=== PATIENT | female | born 1940 | race Caucasian/White ===

== ENCOUNTER → 2018-06-15 | Outpatient (CLI) | payer BC, MEDICARE ==
[2018-06-15 10:03] VITALS: BP 124/85; PULSE 78; RESP 18; BMI 25.0
--- NOTE | 2018-06-15 11:04 | P.GSHP ---
History of Present Illness H&P Date: 06/15/18 Chief Complaint: right breast cancer Leah is a 77-year-old white female who presented with a nodule in her right breast. She states that been present for approximately a year and a half that she had been busy with her who had health issues. She therefore declined to have follow-up at that time but was recently seen in the mammogram was performed. On the mammogram a 4.3 x 4.2 cm lesion was seen in the right breast in the posterior one third. A core biopsy was obtained of this which revealed a grade 3 invasive ductal carcinoma. This is ER/[place] positive HER-2/jos pending grade 3 lesion. The patient has no pain in her breast. She has had no nipple discharge or skin changes. The patient placed preventative medicine. She had not had a mammogram for many years. 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 He is blind and is hearing disabled. He also is a cardiac patient and a diabetic. Family History: negative for cancer Hormonal history: Menarche: [birth year]04[birth year] Pregnancies: 4, 4 children and, for splenic 21, did not breast-feed Menopause: 52 control pills: Negative for moans: Negative Past surgical history: Negative Past medical history: Negative Social history: Smoke: Negative Alcohol: Negative Drugs: Negative - Constitutional Constitutional: Reports sweats - EENT Eyes: denies blurred vision, denies pain Ears: deny: decreased hearing, tinnitus Ears, nose, mouth and throat: Denies headache, Denies sore throat - Breasts Breasts: bilateral: as per HPI - Cardiovascular Cardiovascular: Reports high blood pressure, Denies chest pain, Denies shortness of breath - Respiratory Respiratory: Denies cough, Denies 7 - Gastrointestinal Gastrointestinal: Denies abdominal pain, Denies diarrhea, Denies nausea, Denies vomiting - Genitourinary (Female) Genitourinary: Denies dysuria, Denies hematuria - Menstruation Menstruation: Reports postmenopausal - Musculoskeletal Musculoskeletal: Denies myalgias - Integumentary Integumentary: Denies pruritus, Denies rash - Neurological Neurological: Denies numbness, Denies weakness - Psychiatric Psychiatric: Denies anxiety, Denies depression - Endocrine Endocrine: Denies fatigue, Denies weight change - Hematologic/Lymphatic Comment: none - Allergic/Immunologic Comment: none Past Medical History Past Medical History: Hypertension History of Any Multi-Drug Resistant Organisms: None Reported Additional Past Surgical History / Comment(s): IMPLANT EYES Smoking Status: Never smoker Medications and Allergies Home Medications Medication Instructions Recorded Confirmed Type Lisinopril [Prinivil] 20 mg PO 06/15/18 History Allergies Allergy/AdvReac Type Severity Reaction Status Date / Time No Known Allergies Allergy Unverified 06/15/18 10:03 Surgical - Exam Vital Signs Pulse Resp BP Pulse Ox 78 18 124/85 99 06/15/18 09:54 06/15/18 09:54 06/15/18 09:54 06/15/18 09:54 BMI 25 - General well developed, well nourished, no distress - Eyes normal ocular movement - ENT no hearing loss, no congestion - Neck no masses, trachea midline - Respiratory normal respiratory effort, clear to auscultation - Cardiovascular Rhythm: regular Heart Sounds: normal: S1, S2 - Abdomen Abdomen: soft, non tender, no guarding, no rigid, no rebound - Integumentary normal turgor - Neurologic no disoriented, no combative - Musculoskeletal normal gait, normal posture - Psychiatric oriented to time, oriented to person, oriented to place, speech is normal, memory intact Breast examination: Right breast: Upper outer quadrant reveals approximately 4-1/2 cm mass which is not fixed to the chest wall , this appears to be consistent with the area which was biopsied no other masses of concern identified Right axilla: No adenopathy of concern Left breast: Multi-positional exam no dominant masses or nodules of concern Left axilla: No adenopathy of concern Results Mammogram and pathology results reviewed Assessment and Plan Assessment: Impression: 1. Patient newly diagnosed with a approximately 4.5 cm right breast cancer ER/ [place] positive grade 3 HER-2 equivocal 2. Family history negative for cancer Plan: 1. Preoperative evaluation by medical oncology secondary to size of the tumor 2. Preoperative evaluation at tumor board We've had a long discussion with the patient and her [id number] and her granddaughter regarding treatment options. I have recommended seen a medical oncologist for possible preoperative chemotherapy. The patient would like to save her breast if possible and it would be much better if we could shrink the size of the tumor. The patient is being scheduled to see medical oncology at this time and minimal follow-up here. Cc:
== END | disposition home or self-care (01) ==
LOC: WWCWWP 09:42
PROVIDERS: ATTEND Surgery
DX: Z53.9 Procedure and treatment not carried out, unspecified reason (principal)

== ENCOUNTER → 2018-07-12 | Outpatient (CLI) | payer MEDICARE ==
[2018-07-12 16:27] VITALS: BP 130/68; PULSE 78; RESP 18; BMI 30.2
--- NOTE | 2018-07-12 16:37 | P.PN ---
Progress Note - Text Progress Note Date: 07/12/18 Leah is a 77-year-old white female diagnosed with a right breast invasive ductal carcinoma. The lesion is approximately 4 cm in size when she was initially seen. The patient has been seen by medical oncology and has been started on Femar as the lesion is ER/NH positive. The lesion was a 4.3 cm grade 3 ER/NH positive HER-2/jos negative and node negative right breast cancer. The patient wishes to be treated with a lumpectomy if possible. We have therefore attempting to do preoperative shrinking of the tumor. An Oncotype DX study has been ordered and we are waiting for the results of this. I spoken with medical oncology today depending on results of this will depend on further treatment. At this time they believe that Dr. Fiore wishes to treat with hormone blocking agent for approximately 4 months prior to surgical intervention. Physical exam: Lungs: Clear Heart: Regular rate and rhythm Breast: The area of concern in the upper outer quadrant is approximately 3-4 cm in size and appears it may be slightly smaller than previously, the area is not fixed to the underlying chest wall Impression: 1. Right breast invasive ductal carcinoma, patient is presently on an aromatase inhibitor Plan: 1. Await Oncotype DX results depending on these results patient may have neoadjuvant chemotherapy 2. Continue the Aromidex/await recommendations from medical oncology 3. We will see patient again in one month's time CC: DR. Zulma Mercado
== END | disposition home or self-care (01) ==
LOC: WWCWWP 16:14
PROVIDERS: ATTEND Surgery
DX: Z53.9 Procedure and treatment not carried out, unspecified reason (principal)

== ENCOUNTER → 2018-08-16 | Outpatient (CLI) | payer MEDICARE ==
[2018-08-16 16:02] VITALS: BP 112/72; PULSE 76; RESP 18; TEMP 97.5; BMI 29.2
--- NOTE | 2018-08-16 16:28 | P.PN ---
Subjective Progress Note Date: 08/16/18 Principal diagnosis: Right breast invasive ductal carcinoma Leah is a 78-year-old white female diagnosed with a right breast invasive ductal carcinoma. The lesion was initially approximated 4.3 cm in size. She has been seen by medical oncology and started on Femara the lesion is ER/AZ positive. The nodes were felt to be clinically negative after diagnosis. The lesion is ER/AZ positive, HER-2/jos negative, and grade 3. She has been on hormonal therapy for approximately 2 months and is tolerating it without any difficulty. She states that she believes that the lesion may have decreased slightly in size. As per patient's family and Oncotype was performed and the patient was told she did not need chemotherapy that it would not be beneficial. ROS: HEENT: sinus drainage Lungs: Negative Heart: 9 GI: Negative : Negative Musculoskeletal: Negative Hematologic: Negative Objective - Vital Signs Vital signs: Vital Signs Temp 97.5 F L 08/16/18 15:58 Pulse 76 08/16/18 15:58 Resp 18 08/16/18 15:58 BP 112/72 08/16/18 15:58 Pulse Ox 97 08/16/18 15:58 Intake & Output 08/15/18 08/16/18 08/16/18 18:59 06:59 18:59 Weight 68.039 kg - Exam BMI 29.3 - Constitutional General appearance: Present: average body habitus - EENT Eyes: Present: EOMI ENT: Present: hearing grossly normal - Neck Neck: Present: normal ROM - Respiratory Respiratory: bilateral: CTA - Cardiovascular Rhythm: regular Heart sounds: normal: S1, S2 - Gastrointestinal General gastrointestinal: Present: soft - Integumentary Integumentary: Present: normal turgor - Musculoskeletal Musculoskeletal: Present: gait normal - Psychiatric Psychiatric: Present: A&O x's 3, appropriate affect, intact judgment & insight - Additional findings Additional findings: Breast examination: Right breast: Multi-positional examination reveals the lesion of concern in the upper outer quadrant of the right breast this appears to be softer and have decreased in size relative to the initial examination at this time it is approximately 3-1/2 cm in size Right axilla: No adenopathy of concern Left breast: Multiple positional exam no dominant masses or nodules of concern Left axilla: No adenopathy of concern Assessment and Plan Assessment: Impression: 1. Right breast invasive ductal carcinoma 2. Patient on hormone therapy as per Dr. Duenas 3. Hypertension Plan: 1. Continue hormonal therapy 2. Patient to call if she has any questions or concerns 3. Will follow-up in 2 months and schedule surgery at that time [facility]
== END | disposition home or self-care (01) ==
LOC: WWCWWP 15:43
PROVIDERS: ATTEND Surgery
DX: Z53.9 Procedure and treatment not carried out, unspecified reason (principal)

== ENCOUNTER → 2019-01-31 | Outpatient (CLI) | payer MEDICARE ==
[2019-01-31 16:38] VITALS: BP 120/75; PULSE 59; RESP 16; TEMP 97.5; BMI 29.5
--- NOTE | 2019-01-31 17:20 | P.GSHP ---
History of Present Illness H&P Date: 01/31/19 Chief Complaint: Stage IIA right breast cancer There is a 78-year-old white female who was initially seen in May 2018 with a palpable right breast mass. She had noticed several years prior. Did not change in size and she therefore proceeded to have this evaluated. She then had a diagnostic mammogram and ultrasound of the right breast which revealed a 4.3 x 4.2 cm mass in the upper outer quadrant of the right breast. Core biopsy was performed which was positive for grade 3 invasive ductal carcinoma this was ER/DC strongly positive for HER-2 negative by fish. Oncotype DX revealed recurrence score of 5. She therefore started neoadjuvant for more up with an a ttempt to shrink the lesion. Bone density and 4419 was normal. The patient states that she has had good results with the Femara and is now ready for surgical intervention. She would prefer to have a lumpectomy if at all possible. She had no lymph nodes involved initially. This was an original T2 N0 M0 G3 ER/DC positive HER-2/jos negative stage IIA cancer. Family History: negative for cancer Hormonal history: Menarche: [age] Pregnancies: 4, 4 children and, first born at 21, did not breast-feed Menopause: 52 control pills: Negative hormones: Negative Past surgical history: Negative Past medical history: Negative Social history: Smoke: Negative Alcohol: Negative Drugs: Negative - Constitutional Constitutional: Reports sweats - EENT Eyes: denies blurred vision, denies pain Ears: deny: decreased hearing, tinnitus Ears, nose, mouth and throat: Denies headache, Denies sore throat - Breasts Breasts: bilateral: as per HPI - Cardiovascular Cardiovascular: Reports high blood pressure, Denies chest pain, Denies shortness of breath - Respiratory Respiratory: Denies cough, Denies 7 - Gastrointestinal Gastrointestinal: Denies abdominal pain, Denies diarrhea, Denies nausea, Denies vomiting - Genitourinary (Female) Genitourinary: Denies dysuria, Denies hematuria - Menstruation Menstruation: Reports postmenopausal - Musculoskeletal Musculoskeletal: Denies myalgias - Integumentary Integumentary: Denies pruritus, Denies rash - Neurological Neurological: Denies numbness, Denies weakness - Psychiatric Psychiatric: Denies anxiety, Denies depression - Endocrine Endocrine: Denies fatigue, Denies weight change - Hematologic/Lymphatic Comment: none - Allergic/Immunologic Comment: - Constitutional Constitutional: Denies chills, Denies fever - EENT Eyes: denies blurred vision, denies pain Ears: deny: decreased hearing, tinnitus Ears, nose, mouth and throat: Reports post-nasal drip, Denies headache, Denies sore throat - Breasts Breasts: bilateral: as per HPI - Cardiovascular Cardiovascular: Reports high blood pressure, Denies chest pain, Denies shortness of breath - Respiratory Respiratory: Denies cough, Denies 7 - Gastrointestinal Gastrointestinal: Denies abdominal pain, Denies diarrhea, Denies nausea, Denies vomiting - Genitourinary (Female) Genitourinary: Denies dysuria, Denies hematuria - Menstruation Menstruation: Reports postmenopausal - Musculoskeletal Musculoskeletal: Denies myalgias - Integumentary Integumentary: Denies pruritus, Denies rash - Neurological Neurological: Denies numbness, Denies weakness - Psychiatric Psychiatric: Denies anxiety, Denies depression - Endocrine Endocrine: Denies fatigue, Denies weight change - Hematologic/Lymphatic Comment: none - Allergic/Immunologic Allergic/Immunologic: Reports seasonal allergies Past Medical History Past Medical History: Hypertension History of Any Multi-Drug Resistant Organisms: None Reported Additional Past Surgical History / Comment(s): IMPLANT EYES Smoking Status: Never smoker Medications and Allergies Home Medications Medication Instructions Recorded Confirmed Type Lisinopril [Prinivil] 20 mg PO DAILY 06/15/18 01/31/19 History Cholecalciferol [Vitamin D3] 2,000 unit PO DAILY 07/12/18 01/31/19 History Letrozole [Femara] 2.5 mg PO DAILY 07/12/18 01/31/19 History Allergies Allergy/AdvReac Type Severity Reaction Status Date / Time No Known Allergies Allergy Unverified 01/31/19 16:16 Surgical - Exam Vital Signs Temp Pulse Resp BP Pulse Ox 97.5 F L 59 L 16 120/75 96 01/31/19 16:31 01/31/19 16:31 01/31/19 16:31 01/31/19 16:31 01/31/19 16:31 BMI 29.5 - General well developed, well nourished, no distress - Eyes normal ocular movement - ENT no hearing loss, no congestion - Neck no masses, trachea midline - Respiratory normal respiratory effort, clear to auscultation - Cardiovascular Rhythm: regular Heart Sounds: normal: S1, S2 - Abdomen Abdomen: soft, non tender, no guarding, no rigid, no rebound - Integumentary normal turgor - Neurologic no disoriented, no combative - Musculoskeletal normal gait, normal posture - Psychiatric oriented to time, oriented to person, oriented to place, speech is normal, memory intact breast exam: right breast: Right breast upper outer quadrant area increased fullness site of prior cancer there has been good result with the Femora no other dominant masses or nodules of concern Left right axilla: No adenopathy of concern Left breast: Multiple positional exam no dominant masses or nodules of concern Left axilla: No adenopathy of concern Results Patient states she had bilateral mammogram in November at [facility] do not have that report available Assessment and Plan Assessment: Impresson: 1. right breast cancer 2. fibrocystic breast changes 3. mass right breast 4. Patient with good response to Femara 5. HTN We have discussed risk and benefits of breast surgery. We have talked about lumpectomy and sentinel node biopsy plus or minus axillary node dissection. She understands she will need radiation therapy following lumpectomy. We've also talked about mastectomy plus or minus reconstruction. At this time the patient would like to have lumpectomy and sentinel node biopsy possible axillary node dissection. Section reaction to the anesthetic as well as decreased sensation to the inner arm, lymphedema, and possible injury to the thoracodorsal and long thoracic nerves. She understands and wishes to proceed. Plan: 1. Needle localization excisional lumpectomy right breast possible tissue transfer and rearrangement as well as sentinel node biopsy possible axillary node dissection 2. medical clearance Cc: Yadi Garcia
== END | disposition home or self-care (01) ==
LOC: WWCWWP 15:43
PROVIDERS: ATTEND Surgery
DX: Z53.9 Procedure and treatment not carried out, unspecified reason (principal)

== ENCOUNTER 2019-02-26 08:10 | Day surgery (SDC) | payer MEDICARE ==
[2019-02-22 09:54] VITALS: BMI 28.3
[~2019-02-26 08:10] MED LIST: DEXAMETHASONE SOD PHOSPHATE 10 MG/ML 1 ML VIAL IV ONE; HEPARIN SODIUM,PORCINE 5,000 UNIT/ML 1 ML VIAL SQ ONE; HYDROmorphone 0.5 MG/0.5 ML SYRINGE IVP PRN; LACTATED RINGERS 1,000 ML IV SCH; LIDOCAINE 1% 20 ML VIAL (10MG/ML) FOR IV START INTRADERMA PRN; MIDAZOLAM 2 MG/2 ML VIAL IV PRN; ONDANSETRON 4 MG/2 ML VIAL IVP ONE; SCOPOLAMINE 1.5MG/72HR PATCH TRANSDERM ONE
[2019-02-26 08:52] VITALS: RESP 16
[2019-02-26] MEDS ORDERED: ALPRAZolam 0.25 MG TAB PO ONE (08:53)
[2019-02-26] MEDS ORDERED: LIDOCAINE 1% INJ 10MG/ML (20 ML MDV) SQ ONE (09:31)
--- NOTE | 2019-02-26 10:10 | NM ---
EXAMINATION TYPE: NM sentinel node injection DATE OF EXAM: 02/26/2019 COMPARISON: NONE HISTORY: Right-sided breast cancer. TECHNIQUE AND FINDINGS: The procedure of sentinel lymph node injection was explained to the patient. The benefits, alternatives, and risks were discussed. An informed consent was then obtained. Overlying skin is cleaned with sterile alcohol. Following this, 530 uCi Tc99m Tilmanocept was inject ed in the upper outer aspect of the right nipple intradermally. The patient tolerated the procedure well without any immediate complication. The patient was kept in the radiology department for short stay after the procedure and then taken to surgery for surgical p rocedure what is presumed intraoperative gamma probe will be used for sentinel lymph node detection. IMPRESSION: Right breast radiotracer injection for sentinel node localization as above.
[2019-02-26] MEDS ORDERED: MIDAZOLAM 2 MG/2 ML VIAL IVP ONE (10:39)
[2019-02-26] MEDS ORDERED: HEPARIN SODIUM,PORCINE 5,000 UNIT/ML 1 ML VIAL SQ ONE (12:20)
--- NOTE | 2019-02-26 12:23 | P.NAPBC ---
NAPBC Queries - NAPBC Queries Was patient's case review presented at [facility] tumor board? If no, comment.: Yes Was patient's pathology reviewed at [facility]? If no, comment.: Yes Was breast conservation surgery offered? If no, comment.: Yes Was sentinel node biopsy offered? If no, comment.: Yes Was diagnosis confirmed by percutaneous core biopsy? If no, comment.: Yes Is patient mastectomy patient?: No Clinical Stage: Stage IIA [id number]
[2019-02-26] MEDS ORDERED: ePHEDrine SULFATE/0.9% NACL/PF 50 MG/5 ML SYRINGE IV ONE (12:56)
[2019-02-26] MEDS ORDERED: MIDAZOLAM 2 MG/2 ML VIAL ONE (12:56)
[2019-02-26] MEDS ORDERED: PROPOFOL 10 MG/ML 20 ML VIAL IV ONE (12:56)
[2019-02-26] MEDS ORDERED: ROCURONIUM BROMIDE 10 MG/ML 10 ML VIAL IV ONE (12:56)
[2019-02-26] MEDS ORDERED: SUCCINYLCHOLINE CHLORIDE 100 MG/5 ML SYR IV ONE (12:56)
[2019-02-26] MEDS ORDERED: LIDOCAINE 1% INJ 10MG/ML (20 ML MDV) ONE (12:56)
[2019-02-26] MEDS ORDERED: fentaNYL (PF) 50 MCG/ML 2 ML AMP ONE (12:56)
[2019-02-26] MEDS ORDERED: LACTATED RINGERS 1,000 ML IV ONE (13:38)
--- NOTE | 2019-02-26 14:37 | P.OP ---
Date of Procedure: 02/26/19 Preoperative Diagnosis: Right breast cancer Postoperative Diagnosis: Same Procedure(s) Performed: Right breast sentinel node biopsy, right breast lumpectomy Anesthesia: BARTA Surgeon: Gloria Nava Estimated Blood Loss (ml): 10 IV fluids (ml): 600 Pathology: other (Breast tissue, sentinel node) Condition: stable Disposition: same day Indications for Procedure: right breast core biopsy proven carcinoma status post neoadjuvant hormone therapy Operative Findings: Dense breast tissue, firm mass right breast upper outer quadrant, small sentinel node Description of Procedure: The patient is a 78-year-old white female with a biopsy-proven right breast cancer. She received neoadjuvant hormone therapy. The patient comes for lumpectomy and sentinel node biopsy. The area of the axilla was interrogated prior to prepping the area and this was noted to be radioactive, therefore methylene blue was not injected. The breast and axilla were prepped and draped in a sterile fashion. An incision was made in the axilla with the greatest radioactivity was identified. This was carried down through the skin and subcutaneous tissue to the axillary tissue. This was grasped using an Allis clamp and removed using the Harmonic scalpel. Tiff node was identified in the specimen. The 10 second count was 2331. The 10 second background axillary count was 18. No other adenopathy of concern was palpated. Intraoperative consultation with pathology as to whether frozen section should be obtained was performed. Pathology felt that it would be best to wait for permanent as the patient had received neoadjuvant therapy. We discussed that this was hormonal elevated and chemotherapy in a sterile felt that they would get a better result with permanent section. Following this the axilla was irrigated. After assured that hemostasis was attained the patient was closed using 3-0 Vicryl suture. This was followed by 4-0 Monocryl. The area of the breast was addressed. An incision was made over the area for the projection of the guidewire was noted. This was carried down through the subcutaneous tissue and the wire was brought into the area of the specimen. The specimen was felt to be was grasped using several Allis clamps and this was widely excised. Skin was excised. Dissection was performed posteriorly to the pectoralis major muscle. There was some concern that there was involvement in this area and this was excised at this point as well. The specimen was removed and painted for orientation. Radiograph revealed the area of concern about removed. Additional inferior and superior margins were obtained. These were painted for orientation as well. After assured that hemostasis was attained the wound was well irrigated. The deep tissues were closed using 3-0 Vicryl suture. The skin was closed using 4-0 Monocryl. The patient tolerated the procedure in stable condition. Titanium clips were placed. The deep tissues were closed using 3-0 Vicryl suture. The skin was closed using 4-0 Monocryl. Mastisol and Steri-Strips were applied. The patient tolerated procedure in stable condition.
--- NOTE | 2019-02-26 14:39 | P.DS ---
Providers Attending physician: Gloria Nava Primary care physician: Srini Maya Plan - Discharge Summary Discharge Rx Participant: Yes New Discharge Prescriptions: No Action Lisinopril [Prinivil] 20 mg PO QAM Letrozole [Femara] 2.5 mg PO QAM Cholecalciferol [Vitamin D3] 2,000 unit PO DAILY Loratadine [Claritin] 10 mg PO DAILY PRN PRN Reason: sinus congestion Discharge Medication List Lisinopril [Prinivil] 20 mg PO QAM 06/15/18 [History] Cholecalciferol [Vitamin D3] 2,000 unit PO DAILY 07/12/18 [History] Letrozole [Femara] 2.5 mg PO QAM 07/12/18 [History] Loratadine [Claritin] 10 mg PO DAILY PRN 02/22/19 [History] Follow up Appointment(s)/Referral(s): Gloria Nava MD [STAFF PHYSICIAN] - 1 Week Activity/Diet/Wound Care/Special Instructions: do not drive for 24 hours after discharge wear bra at all times Discharge Disposition: HOME SELF-CARE
--- NOTE | 2019-02-26 14:41 | MM ---
EXAMINATION TYPE: MG pre op needle loc RT, MG surgical specimen RT DATE OF EXAM: 02/26/2019 COMPARISON: Outside mammogram November 07, 2018 and older studies. CLINICAL HISTORY: Biopsy-proven right breast cancer. TECHNIQUE: Needle localization with wire placement and surgical excision of area of concern in the right breast. FINDINGS: The procedure of needle localization with wire placement and than surgical excision was explained to the patient. Benefits, alternatives, and risks were discussed. An informed consent was then obtained. The shortest pathway for procedure was chosen. Shortest pathway was lateral approach. The overlying skin was prepped and draped in usual sterile fashion. Lidocaine was used as anesthetic into the skin and subcutaneous tissue up to the level of area of concern. A 7 cm needle was used. It was placed via a lateral approach under mammographic guidance. Subsequent 90 degrees mammogram show the needle to be in satisfactory position relative to the targeted area. At this point, wire was placed and the needle was withdrawn. The wire was fixed to patient's skin. Images were marked for surgeon. The patient tolerated the procedure well without any immediate complication. The patient was kept in the radiology department for short stay after the procedure and then taken to surgery for surgical excision. Targeted biopsy clip and wire are identified in specimen mammogram. The patient was kept in hospital for short stay after the procedure and then discharged home in stable condition. IMPRESSION: Successful, uncomplicated needle localization with wire placement and surgical excision of targeted biopsy clip in the right breast, full pathology results to follow. Pathology Results: Malignant A. 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 Invasive tumor involves resection margins multifocally (tumor involves purple inked/posterior, black inked/superior, and blue inked/anterior margins). Prominent scar consistent with neoadjuvant treatment related changes. See Surgical Pathology Cancer Case Summary. B. RIGHT BREAST SENTINEL LYMPH NODE, BIOPSY: Lymph node negative for metastasis. CK7 and AMALIA immunoperoxidase stains are confirmatory (controls appropriate). C. RIGHT BREAST, NEW INFERIOR MARGIN, EXCISION: Benign breast tissue. D. RIGHT BREAST, NEW SUPERIOR MARGIN, EXCISION: Benign fibroadipose tissue. E. DE-EPITHELIALIZED SKIN: Benign skin and subcutaneous tissue. Recommendation Surgical consult of the right breast. (tumor involves margins multifocally) MTDD
[2019-02-26 15:02] VITALS: TEMP 96.8
[2019-02-26 16:41] VITALS: BP 147/79; PULSE 98
== END 2019-02-26 17:01 | disposition home or self-care (01) ==
LOC: OR 08:10
PROVIDERS: ATTEND Surgery
DX: C50.911 Malignant neoplasm of unspecified site of right female breast (principal); D05.11 Intraductal carcinoma in situ of right breast; I10 Essential (primary) hypertension; Z97.2 Presence of dental prosthetic device (complete) (partial); Z79.811 Long term (current) use of aromatase inhibitors; Z79.899 Other long term (current) drug therapy
CPT/HCPCS: 19301; 38525; 88305; 88342; 88307; 88341; 76098; 38792; A9520; J2250; J1644; J1100; J0690; J2405; J2001; J3010; J0330; J2704

== ENCOUNTER → 2019-03-08 | Outpatient (CLI) | payer MEDICARE ==
[2019-03-08 15:35] VITALS: BP 164/78; PULSE 77; RESP 18; TEMP 97.7; BMI 27.3
--- NOTE | 2019-03-08 16:44 | P.PN ---
Progress Note - Text Progress Note Date: 03/08/19 Patient is a 78-year-old white female status post right lumpectomy and sentinel node biopsy on 02-26-19. The patient is doing well postoperatively with no complaints. She on pathology is noted to have positive posterior, anterior, and superior margins initially. The posterior margin was dissected down to the pectoralis major muscle was not felt that they can have further surgery for this. The anterior margin included taking the skin and this was negative. The patient said. Her margin was reexcised at the time of surgery and the new margin was negative for tumor. It was therefore felt that further surgical resection is not necessary at this time. The patient does require radiation therapy and will continue her hormonal therapy. The patient does not want any further surgery at this time. She was given the option of a mastectomy, and declined at this time. Physical Exam: Lungs: Clear Heart: Regular rate and rhythm Incisions: Clean and dry Impression/Plan: 1. Positive margins noted on pathology posterior anterior and superior on initial resection, dissection was performed to the pectoralis muscle posteriorly, skin was taken anteriorly, and superiorly new margin was negative Margin was negative. At this time is not felt therefore that further resection is necessary 2. Patient should continue on anti-hormonal therapy 3. Oncotype did not reveal that chemotherapy would be beneficial and was not offered 4. Patient to have appointment with radiation oncology 5. Patient's case be presented at tumor board 6. follow up in three weeks CC: Yadi Garcia
== END | disposition home or self-care (01) ==
LOC: WWCWWP 15:13
PROVIDERS: ATTEND Surgery
DX: Z53.9 Procedure and treatment not carried out, unspecified reason (principal)

== ENCOUNTER → 2019-03-28 | Outpatient (CLI) | payer MEDICARE ==
[2019-03-28 10:26] VITALS: BP 162/82; PULSE 68; RESP 18; TEMP 97.8
--- NOTE | 2019-03-28 11:33 | P.PN ---
Progress Note - Text Progress Note Date: 03/28/19 Leah is a 78-year-old white female status post hormonal neoadjuvant therapy for a right breast cancer. She subsequently underwent a right breast [place] [address]. This was a stage II a breast cancer. The sentinel node was negative. 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 Invasive tumor involved resection margins at the purple margin which was on the pectoralis muscle, black superior margin which was reexcised and negative, and the anterior margin which skin had been excised at anfurther anterior margin could be obtained. The patient had her case presented at tumor board and the feeling was that no further surgical intervention was needed at this time. I discussed with the patient and her [id number] the margins were positive and she is at increased risk for recurrence however at this time she will be treated patient therapy and continued hormonal therapy. The patient has no complaints related to the surgery at this time. Physical exam: Lungs: Clear Heart: Regular rate and rhythm Right breast: Incision clean and dry no evidence of infection or hematoma no evidence of recurrent cancer at this time Impression: 1. Patient postoperatively [id number] with breast lumpectomy and sentinel node biopsy 2. Positive node posteriorly for which patient is receiving radiation resection was to the pectoralis major muscle and positive and anteriorly however skin was resected anteriorly. The patient initially had a positive superior margin which was reexcised and negative The case was presented at tumor board and the plan at this time is for radiation and hormonal therapy Plan: 1. Radiation and Bath 2. Continue hormonal therapy as per medical oncology 3. Follow-up here in 3 months time 4. Follow up sooner if any questions or concerns Cc: Yadi Howell
== END | disposition home or self-care (01) ==
LOC: WWCWWP 09:08
PROVIDERS: ATTEND Surgery
DX: Z53.9 Procedure and treatment not carried out, unspecified reason (principal)

== ENCOUNTER → 2019-12-12 | Outpatient (CLI) | payer MEDICARE ==
[2019-12-12 15:54] VITALS: BP 141/82; PULSE 87; RESP 18; TEMP 97.9
--- NOTE | 2019-12-12 16:16 | P.PN ---
Subjective Progress Note Date: 12/12/19 Principal diagnosis: stage IIA right breast cancer Leah is a 79-year-old white female who was initially seen in May 2018 with a palpable right breast mass. She had noticed several years prior. She presented for evaluation. She then had a diagnostic mammogram and ultrasound of the right breast which revealed a 4.3 x 4.2 cm mass in the upper outer quadrant of the right breast. Core biopsy was performed which was positive for grade 3 invasive ductal carcinoma this was ER/NC strongly positive, HER-2 negative by fish. Oncotype DX revealed recurrence score of 5. She therefore started neoadjuvant hormone therapy with an attempt to shrink the lesion. Bone density on 4418 was normal. The patient states that she has had good results with the Femara,02-26-19 she underwent a lumpectomy and SNB. 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 Invasive tumor involved resection margins at the peripheral margin which is on the pectoralis muscle, black superior margin which was reexcised and negative, and the anterior margin which was asked skin and there had been excised somewhat further anterior margin could be obtained. Her case was presented at tumor board and the feeling at that time was that no further surgical intervention was needed. She completed 6 weeks of radiation therapy in approximately May 2019. She is continuing to take Femara. She is not complaining of any masses or nodules in her breast at this time. She is due for a right breast mammogram and she is 6 months from completion of her radiation therapy at this time. Family History: Patient breast cancer Hormonal history: Menarche: 12 1/2 Pregnancies: 4, 4 children and, first born at 21, did not breast-feed Menopause: 52 control pills: Negative hormones: Negative Past surgical history: Right breast lumpectomy and sentinel node biopsy Past medical history: Negative Social history: Smoke: Negative Alcohol: Negative Drugs: Negative - Constitutional Constitutional: Reports sweats - EENT Eyes: denies blurred vision, denies pain Ears: deny: decreased hearing, tinnitus Ears, nose, mouth and throat: Denies headache, Denies sore throat - Breasts Breasts: bilateral: as per HPI - Cardiovascular Cardiovascular: Reports high blood pressure, Denies chest pain, Denies shortness of breath - Respiratory Respiratory: Denies cough - Gastrointestinal Gastrointestinal: Denies abdominal pain, Denies diarrhea, Denies nausea, Denies vomiting - Genitourinary (Female) Genitourinary: Denies dysuria, Denies hematuria - Menstruation Menstruation: Reports postmenopausal - Musculoskeletal Musculoskeletal: Denies myalgias - Integumentary Integumentary: Denies pruritus, Denies rash - Neurological Neurological: Denies numbness, Denies weakness - Psychiatric Psychiatric: Denies anxiety, Denies depression - Endocrine Endocrine: Denies fatigue, Denies weight change - Hematologic/Lymphatic Comment: none - Objective - Vital Signs Vital signs: Vital Signs Temp 97.9 F 12/12/19 15:50 Pulse 87 12/12/19 15:50 Resp 18 12/12/19 15:50 BP 141/82 12/12/19 15:50 Pulse Ox 98 12/12/19 15:50 Intake & Output 12/11/19 12/12/19 12/12/19 18:59 06:59 18:59 Weight 63.503 kg - Constitutional General appearance: Present: average body habitus - EENT Eyes: Present: EOMI ENT: Present: hearing grossly normal - Neck Neck: Present: normal ROM - Respiratory Respiratory: bilateral: CTA - Cardiovascular Rhythm: regular Heart sounds: normal: S1, S2 - Gastrointestinal General gastrointestinal: Present: normal bowel sounds, soft - Integumentary Integumentary Comment(s): Dark nevus left back near her bra line, left upper extremity Integumentary: Present: normal turgor - Musculoskeletal Musculoskeletal: Present: gait normal - Psychiatric Psychiatric: Present: A&O x's 3, appropriate affect, intact judgment & insight - Additional findings Additional findings: breast: BRA: large inspection: Postop and radiation changes right breast, bilateral ptosis grade 3 Palpation: Right breast: radiation changes no dominant masses or nodules of concern on multi-positional examination Right axilla: No adenopathy of concern Left breast: Multi-positional exam fibrocystic changes, no dominant masses or nodules of concern Left axilla: No adenopathy of concern Assessment and Plan Assessment: Impression: 1. Patient status post lumpectomy and sentinel node biopsy right breast cancer stage IIA; patient had neoadjuvant hormonal therapy, patient has finished radiation therapy, at this time no evidence of recurrent cancer 2. Dark nevus of concern left back bra line, left upper arm 3. continues on Femora Plan: 1. Continue Femara 2. Continue to follow-up here regarding breast changes due for right breast mammogram at this time we'll follow up after this 3. Excision of nevi in the office left posterior back at [facility], left upper arm CC: DR. Yadi Garcia, Dr. Maya encounter 20 minutes, > 50% of tiem in planning and counselling
== END | disposition home or self-care (01) ==
LOC: WWCWWP 15:39
PROVIDERS: ATTEND Surgery
DX: Z53.9 Procedure and treatment not carried out, unspecified reason (principal)

== ENCOUNTER → 2020-02-21 | Outpatient (CLI) | payer MEDICARE ==
--- NOTE | 2020-02-21 12:10 | MM ---
Reason for exam: follow-up at short interval from prior study. Last mammogram was performed 1 year and 4 months ago. History: Patient is postmenopausal and has history of breast cancer at age 78. Malignant MG pre op needle loc RT of the right breast, February 26, 2019. Lumpectomy of the right breast, February 26, 2019. Physical Findings: Nurse did not find any significant physical abnormalities on exam. MG 3D Diag Mammo W/Cad SEJAL Bilateral CC and MLO view(s) were taken. Prior study comparison: October 28, 2018, mammogram. May 23, 2018, mammogram. May 17, 2018, mammogram. The breast tissue is heterogeneously dense. This may lower the sensitivity of mammography. Finding #1: There is skin thickening and architectural distortion in the upper outer quadrant, posterior position of the right breast consistent with known treatment changes. Finding #2: There are typically benign round, linear calcifications in both breasts. There is no discrete abnormality. These results were verbally communicated with the patient and result sheet given to the patient on 02/21/20. ASSESSMENT: Benign, BI-RAD 2 RECOMMENDATION: Follow-up diagnostic mammogram of both breasts in 1 year.
== END | disposition home or self-care (01) ==
LOC: RADMAMWWP 11:11
PROVIDERS: ATTEND Surgery
DX: Z08 Encounter for follow-up examination after completed treatment for malignant neoplasm (principal); Z85.3 Personal history of malignant neoplasm of breast
CPT/HCPCS: 77066; G0279; 77062

== ENCOUNTER → 2020-02-27 | Outpatient (CLI) | payer MEDICARE ==
[2020-02-27 16:04] VITALS: BP 130/72; PULSE 82; RESP 18; TEMP 97.9
--- NOTE | 2020-02-27 16:47 | P.PN ---
Subjective Progress Note Date: 02/27/20 Principal diagnosis: Stage II a right breast cancer, 2 nevus on her back which are of concern stage IIA right breast cancer Leah is a 79-year-old white female who was initially seen in May 2018 with a palpable right breast mass. She had noticed several years prior. She presented for evaluation. She then had a diagnostic mammogram and ultrasound of the right breast which revealed a 4.3 x 4.2 cm mass in the upper outer quadrant of the right breast. Core biopsy was performed which was positive for grade 3 invasive ductal carcinoma this was ER/WI strongly positive, HER-2 negative by fish. Oncotype DX revealed recurrence score of 5. She therefore started neoadjuvant hormone therapy with an attempt to shrink the lesion. Bone density on 4418 was normal. The patient states that she has had good results with the Femara,02-26-19 she underwent a lumpectomy and SNB. 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 Invasive tumor involved resection margins at the peripheral margin which is on the pectoralis muscle, black superior margin which was reexcised and negative, and the anterior margin which was asked skin and there had been excised somewhat further anterior margin could be obtained. Her case was presented at tumor board and the feeling at that time was that no further surgical intervention was needed. She completed 6 weeks of radiation therapy in approximately May 2019. She is continuing to take Femara. She is not complaining of any masses or nodules in her breast at this time. Had a bilateral mammogram performed on which is felt to be benign BIRADS 2 and repeat mammogram of the breast in 1 year is recommended. She has no complaints or changes in her breast since her last appointment. Family History: Patient breast cancer Hormonal history: Menarche: [age] Pregnancies: 4, 4 children and, first born at 21, did not breast-feed Menopause: 52 control pills: Negative hormones: Negative Past surgical history: Right breast lumpectomy and sentinel node biopsy Past medical history: Negative Social history: Smoke: Negative Alcohol: Negative Drugs: Negative - Constitutional Constitutional: Reports sweats - EENT Eyes: denies blurred vision, denies pain Ears: deny: decreased hearing, tinnitus Ears, nose, mouth and throat: Denies headache, Denies sore throat - Breasts Breasts: bilateral: as per HPI - Cardiovascular Cardiovascular: Reports high blood pressure, Denies chest pain, Denies shortness of breath - Respiratory Respiratory: Denies cough - Gastrointestinal Gastrointestinal: Denies abdominal pain, Denies diarrhea, Denies nausea, Denies vomiting - Genitourinary (Female) Genitourinary: Denies dysuria, Denies hematuria - Menstruation Menstruation: Reports postmenopausal - Musculoskeletal Musculoskeletal: Denies myalgias - Integumentary Integumentary: Denies pruritus, Denies rash - Neurological Neurological: Denies numbness, Denies weakness - Psychiatric Psychiatric: Denies anxiety, Denies depression - Endocrine Endocrine: Denies fatigue, Denies weight change - Hematologic/Lymphatic Comment: none - Objective - Vital Signs Vital signs: Vital Signs Temp 97.9 F 02/27/20 16:00 Pulse 82 02/27/20 16:00 Resp 18 02/27/20 16:00 BP 130/72 02/27/20 16:00 Pulse Ox 100 02/27/20 16:00 Intake & Output 02/26/20 02/27/20 02/27/20 18:59 06:59 18:59 Weight 63.957 kg - Exam BMI 26.6 - Constitutional General appearance: Present: average body habitus - EENT Eyes: Present: EOMI ENT: Present: hearing grossly normal - Integumentary Integumentary Comment(s): Integument: To evaluate one in her left back and a outlined in my left upper extremity which are dark and recommended for excision - Musculoskeletal Musculoskeletal: Present: gait normal - Psychiatric Psychiatric: Present: A&O x's 3, appropriate affect Assessment and Plan Assessment: Impression: 1. Patient with stage II breast cancer no evidence of recurrent disease 2. 2 nevi of concern back and left upper extremity for excision Plan: 1. Excision of nevi of concern 2. Repeat bilateral mammogram in 1 year 3. Follow-up breast examination in 6 months 4. Continue to follow with medical and radiation oncology CC: Yadi Garcia encounter 15 monutes, > 50% of tiem in planning and counselling
--- NOTE | 2020-02-27 17:08 | P.PCN ---
Date of Procedure: 02/27/20 Preoperative Diagnosis: Nevus of concern of left mid back and left upper extremity Postoperative Diagnosis: Same Procedure(s) Performed: Excision of 2 nevi left mid back, left upper arm Anesthesia: local Surgeon: Gloria Nava Pathology: other (This left mid back and left upper extremity) Condition: stable Disposition: same day Indications for Procedure: dark nevi left mid back, and left upper extremity Operative Findings: 2 dark nevi Description of Procedure: Leah is a 79-year-old white female who came for excision of 2 nevi on her back and left upper extremity. Both areas were prepped using Betadine. 1% lidocaine was used to anesthetize the areas of concern. The area in the back was approached initially. Wide excision was performed. The lesion was 1 cm in size. Skin was closed using a nylon suture. The area was then approached. 1% lidocaine was used to anesthetize the area of concern. Wide excision was performed. The skin was closed using nylon suture. Patient tolerated the procedure in stable condition. All instrument and sponge counts were correct at the end of the case.
== END | disposition home or self-care (01) ==
LOC: WWCWWP 15:40
PROVIDERS: ATTEND Surgery
DX: D22.5 Melanocytic nevi of trunk (principal); D22.60 Melanocytic nevi of unspecified upper limb, including shoulder
CPT/HCPCS: 88305

== ENCOUNTER → 2020-03-06 | Outpatient (CLI) | payer MEDICARE ==
[2020-03-06 16:39] VITALS: BP 133/75; PULSE 85; RESP 18; TEMP 97.9
--- NOTE | 2020-03-06 16:41 | P.PN ---
Progress Note - Text Progress Note Date: 03/06/20 Leah is status post excision of 2 [place] [id number]. That in her upper back was a compound nevus with lentiginous hyperplasia and mild junctional atypia involving one peripheral tip The left arm was a junctional nevus with lentiginous hyperplasia and mild atypia involving one peripheral tip It is recommended that both areas be reexcised Lungs: Clear Heart: Regular rate and rhythm Incision left arm and mid back clean and dry Impression: 1. Nevi of back and left upper arm excised both recommended for reexcision Plan: 1. re-excision of nevi left upper and mid back CC: Yadi hubbard
== END | disposition home or self-care (01) ==
LOC: WWCWWP 16:33
PROVIDERS: ATTEND Surgery
DX: Z53.9 Procedure and treatment not carried out, unspecified reason (principal)

== ENCOUNTER → 2020-04-03 | Outpatient (CLI) | payer MEDICARE ==
--- NOTE | 2020-04-03 16:38 | P.PCN ---
Date of Procedure: 04/03/20 Preoperative Diagnosis: Excision of 2 nevi upper back compound nevus with lentiginous hyperplasia and junctional atypia involving 1 peripheral margin Left arm junctional nevus with a lentiginous hyperplasia and mild atypia involving 1 peripheral [place] [id number] and reexcision was recommended Postoperative Diagnosis: Same Procedure(s) Performed: Wide reexcision of 2 nevi, upper back, left arm Anesthesia: local Surgeon: Gloria Nava Pathology: other (re-excision of nevi) Condition: stable Disposition: same day Indications for Procedure: Patient had 2 nevi excised 1 from her upper back and one from her left arm both had atypia involving a margin and both were recommended for reexcision Operative Findings: Scar Description of Procedure: Patient was brought to the procedure room and the area on the back was prepped using Betadine. 1% lidocaine was used to anesthetize the area of concern. Wide excision was performed with a prior nevus site. The incision was closed using 3-0 nylon suture. The lesion wasn't 1.8 cm in size. Following this the area on the arm was approached. This was prepped using Betadine. 1% lidocaine was used in anesthetize the site. Wide excision was performed this was 2 cm. The incision was closed using a nylon suture. Patient tolerated procedure in stable condition. Specimens were sent to pathology.
[2020-04-03 16:44] VITALS: BP 124/72; PULSE 72; RESP 20; TEMP 98
== END | disposition home or self-care (01) ==
LOC: WWCWWP 16:08
PROVIDERS: ATTEND Surgery
DX: D22.5 Melanocytic nevi of trunk (principal); D22.60 Melanocytic nevi of unspecified upper limb, including shoulder
CPT/HCPCS: 88305

== ENCOUNTER → 2020-04-10 | Outpatient (CLI) | payer MEDICARE ==
--- NOTE | 2020-04-10 16:31 | P.PN ---
Progress Note - Text Progress Note Date: 04/10/20 Patient is status post reexcision of 2 nevi one in her mid back and one on her left arm. No residual melanocytic lesion was identified in either one. The areas are well-healed. Sutures removed. Plan: follow up July 2020 for exam related to surveillance stage II A right breast cancer bilateral mammogram in January 2021
== END | disposition home or self-care (01) ==
DX: Z53.9 Procedure and treatment not carried out, unspecified reason (principal)